=== PATIENT | female | born 1995 | race Caucasian/White ===

== ENCOUNTER 2016-12-13 09:38 | Emergency (ER) | payer SELFPAY ==
[2016-12-13 09:49] VITALS: BP 112/61; PULSE 101; TEMP 98.4; BMI 27.4
--- NOTE | 2016-12-13 10:04 | PDOC ---
History of Present Illness - General Chief Complaint: Pain, Acute Stated Complaint: VOMITING, ABD PAIN, CHILLS Time Seen by Provider: 12/13/16 10:02 History Source: Patient Exam Limitations: No Limitations - History of Present Illness Initial Comments: CHIEF COMPLAINT: 21 y/o afebrile female with no significant PMH c/o nasal congestion and belly ache since yesterday. HISTORY OF PRESENT ILLNESS: The patient states she is constantly swallowing her nasal congestion since yesterday. She states she has a mild cough and her stomach is upset. She denies fever, chills, sore throat, v/d, CP, SOB, productive cough, constipation. The patient did not take any over the counter medications for her symptoms. Vital signs on arrival are notable for pulse of 101. REVIEW OF SYSTEMS: GENERAL/CONSTITUTIONAL: No fever/chills. No weakness. No weight change. HEAD, EYES, EARS, NOSE AND THROAT: No change in vision. No ear pain or discharge. No sore throat. +nasal congestion CARDIOVASCULAR: No chest pain or shortness of breath. RESPIRATORY: +dry cough. No wheezing, or hemoptysis. GASTROINTESTINAL: +nasal and upset stomach. No vomiting, diarrhea, constipation. GENITOURINARY: No dysuria, frequency, or change in urination. MUSCULOSKELETAL: No joint or muscle swelling or pain. No neck or back pain. SKIN: No rash or easy bruising. NEUROLOGIC: No headache, vertigo, loss of consciousness, or loss of sensation. PHYSICAL EXAM: GENERAL: The patient is awake, alert, and fully oriented, in no acute distress. She is well appearing with nasal congestion. No cough throughout exam. HEAD: Normal with no signs of trauma. No TTP of sinuses. ENT: Pupils equal, round and reactive to light, extraocular movements intact, sclera anicteric, conjunctiva clear. Neck supple. LUNGS: Clear to auscultation bilaterally. Normal excursion. No respiratory distress or use of accessory muscles. CV: RRR, S1/S2, no MRG. Cap refill < 2 sec. ABDOMEN: Soft, non-distended, minimal TTP of epigastric region. Normal BS x 4 EXTREMITIES: Normal range of motion, no edema. NEUROLOGICAL: Normal speech, normal gait. CN II-XII grossly intact. PSYCH: Normal mood, normal affect. SKIN: Warm, dry, normal turgor, no rashes or lesions noted. Past History - Past Medical History Allergies/Adverse Reactions: Allergies Allergy/AdvReac Type Severity Reaction Status Date / Time No Known Allergies Allergy Verified 12/13/16 09:44 Home Medications: Ambulatory Orders NK [No Known Home Medication] 12/13/16 Other medical history: denies - Psycho/Social/Smoking Cessation Hx Anxiety: No Suicidal Ideation: No Smoking Status: No Smoking History: Never smoked Number of Cigarettes Smoked Daily: 0 Hx Alcohol Use: Yes (ocassionally) Drug/Substance Use Hx: Yes (marijuana) Substance Use Type: Marijuana *Physical Exam - Vital Signs Last Vital Signs Temp Pulse Resp BP Pulse Ox 98.4 F 101 H 14 112/61 97 12/13/16 09:45 12/13/16 09:45 12/13/16 09:45 12/13/16 09:45 12/13/16 09:45 Medical Decision Making - Medical Decision Making A/P: 21 y/o afebrile female with nasal common cold. Plan is as follows: 1. UA/hcg 2. PO pepcid 3. PO motrin hcg - negative The patient's vital signs have improved. She will be discharged to home with supportive care instructions for common cold. Instructed her to return to the ER with any worsening or concerning symptoms. The patient verbalizes understanding of all instructions, has no further questions and is awaiting discharge. *DC/Admit/Observation/Transfer Diagnosis at time of Disposition: Common cold, Nasal congestion - Discharge Dispostion Disposition: HOME Condition at time of disposition: Improved - Patient Instructions Printed Discharge Instructions: DI for Common Cold, DI for Nasal Congestion Additional Instructions: Discharge Instructions: -You can take an over the counter antihistamine such as zyrtec or claritin for your runny nose -You can take over the counter Sudafed for nasal congestion -Take over the counter Motrin for body aches if needed -Get plenty of rest and drink lots of fluids - Post Discharge Activity Work/School Note: Back to Work
[2016-12-13 10:40] LABS: URINE APPEARANCE CLEAR; URINE BILIRUBIN NEGATIVE (NEGATIVE); URINE BLOOD NEGATIVE (NEGATIVE); URINE COLOR YELLOW; URINE GLUCOSE (UA) NEGATIVE (NEGATIVE); URINE KETONE TRACE (NEGATIVE); URINE LEUK ESTERASE NEGATIVE (NEGATIVE); URINE NITRITE NEGATIVE (NEGATIVE); URINE PROTEIN NEGATIVE (NEGATIVE); URINE UROBILINOGEN NEGATIVE E.U./dl (0.2-1.0)
[2016-12-13] MEDS ORDERED: IBUPROFEN 600 MG TABLET (FP) PO ONE ×2 (10:55→11:01)
[2016-12-13] MEDS ORDERED: RANITIDINE HCL 150 MG TABLET (FP) PO ONE (10:55)
[2016-12-13] MEDS ORDERED: RANITIDINE HCL 150 MG TABLET (FP) ONE (11:01)
== END 2016-12-13 11:35 | disposition home or self-care (01) ==
LOC: JERFT 09:38
DX: J00 Acute nasopharyngitis [common cold] (principal)
CPT/HCPCS: 81003; 84703; 87086; 99282-25

== ENCOUNTER 2017-01-05 19:54 | Emergency (ER) | payer OTHER ==
[2017-01-05 20:06] VITALS: BP 113/67; PULSE 78; TEMP 99.5; BMI 27.4
--- NOTE | 2017-01-05 20:13 | PDOC ---
History of Present Illness <Jorge De La Paz - Last Filed: 01/05/17 20:11> - General History Source: Patient Exam Limitations: No Limitations - History of Present Illness Initial Comments: 01/05/17 20:28 The patient is a 21 year old female, with no significant past medical history, who presents to the emergency department with abdominal pain for the past month. She states that her pain is a cramping sensation that it intermittent in nature, without radiation or modifying factors. She notes that her menstrual cycle is at times normal and at times comes early. She also notes that at times she does having burning in her urethra after sexual intercourse. The patient denies any other symptoms. Allergies: None Past surgical history: None reported Social history: Marijuana and alcohol use. No drug use reported <Jonathan Rodriguez - Last Filed: 01/05/17 20:28> - General Chief Complaint: Pain Stated Complaint: ABD PAIN Time Seen by Provider: 01/05/17 20:05 Past History - Psycho/Social/Smoking Cessation Hx Anxiety: No Suicidal Ideation: No Smoking Status: No Smoking History: Never smoked Number of Cigarettes Smoked Daily: 0 Hx Alcohol Use: Yes (ocassionally) Drug/Substance Use Hx: Yes (marijuana) Substance Use Type: Marijuana <Jorge De La Paz - Last Filed: 01/05/17 20:11> <Jonathan Rodriguez - Last Filed: 01/05/17 20:28> - Past Medical History Allergies/Adverse Reactions: Allergies Allergy/AdvReac Type Severity Reaction Status Date / Time No Known Allergies Allergy Verified 12/13/16 09:44 Home Medications: Ambulatory Orders NK [No Known Home Medication] 12/13/16 Review of Systems - Review of Systems Able to Perform ROS?: Yes ABD/GI: Yes: Abdominal cramping All Other Systems: Reviewed and Negative <Jonathan Rodriguez - Last Filed: 01/05/17 20:28> *Physical Exam - Vital Signs Last Vital Signs Temp Pulse Resp BP Pulse Ox 99.5 F 78 16 113/67 100 01/05/17 20:02 01/05/17 20:02 01/05/17 20:02 01/05/17 20:02 01/05/17 20:02 - Physical Exam General Appearance: Yes: Nourished, Appropriately Dressed. No: Apparent Distress HEENT: positive: Normal ENT Inspection Respiratory/Chest: negative: Respiratory Distress Cardiovascular: positive: Regular Rhythm, Regular Rate Gastrointestinal/Abdominal: positive: Normal Bowel Sounds, Soft. negative: Tender Musculoskeletal: positive: Normal Inspection. negative: CVA Tenderness Integumentary: positive: Normal Color Neurologic: positive: Fully Oriented, Alert, Normal Mood/Affect, Normal Response , Motor Strength 5/5 <Jorge De La Paz - Last Filed: 01/05/17 20:11> - Vital Signs Last Vital Signs Temp Pulse Resp BP Pulse Ox 99.5 F 78 16 113/67 100 01/05/17 20:02 01/05/17 20:02 01/05/17 20:02 01/05/17 20:02 01/05/17 20:02 <Jonathan Rodriguez - Last Filed: 01/05/17 20:28> ED Treatment Course - ADDITIONAL ORDERS Additional order review: Laboratory Results 01/05/17 20:00 Urine Color Yellow Urine Appearance Clear Urine pH 6.5 Ur Specific [place] 1.025 Urine Protein Negative Urine Glucose (UA) Negative Urine Ketones Negative Urine Blood Negative Urine Nitrite Negative Urine Bilirubin Negative Urine Urobilinogen 0.2 e.u/dl Ur Leukocyte Esterase Negative <Jonathan Rodriguez - Last Filed: 01/05/17 20:28> *DC/Admit/Observation/Transfer <Jorge De La Paz - Last Filed: 01/05/17 20:11> - Attestations Scribe Attestion: 01/05/17 20:28 Documentation prepared by Jonathan Rodriguez, acting as medical record administrator for Jorge De La Paz MD <Jonathan Rodriguez - Last Filed: 01/05/17 20:28> Diagnosis at time of Disposition: Menstrual cramps - Discharge Dispostion Disposition: HOME Condition at time of disposition: Good - Patient Instructions Additional Instructions: SEE YOU LINOLEUM FLOOR LAYER PLANNED IBUPROFEN 600 MG 3 TIMES A DAY AT FIRST SIGN OF PAIN. CONTINUE FOR 2-3 DAYS RETURN IF SEVERE, CONSTANT PAIN, FEVER, VOMITING
[2017-01-05 20:21] LABS: PH,URINE 6.5 (4.5-8); URINE APPEARANCE Clear; URINE BILIRUBIN Negative (NEGATIVE); URINE BLOOD Negative (NEGATIVE); URINE GLUCOSE (UA) Negative (NEGATIVE); URINE KETONE Negative (NEGATIVE); URINE LEUK ESTERASE Negative (NEGATIVE); URINE NITRITE Negative (NEGATIVE); URINE PROTEIN Negative (NEGATIVE); URINE UROBILINOGEN 0.2 E.U/dl (0.2-1.0)
[2017-01-05 20:22] LABS: URINE COLOR YELLOW
== END 2017-01-05 20:46 | disposition home or self-care (01) ==
LOC: FER 19:54
DX: N94.6 Dysmenorrhea, unspecified (principal)
CPT/HCPCS: 81003; 99281-25

== ENCOUNTER 2017-01-19 09:25 | Emergency (ER) | payer OTHER ==
[2017-01-19 09:31] VITALS: BP 113/71; PULSE 90; TEMP 98.8; BMI 27.4
--- NOTE | 2017-01-19 09:36 | PDOC ---
History of Present Illness - General Chief Complaint: Chest Pain Stated Complaint: CHEST PAIN Time Seen by Provider: 01/19/17 09:28 History Source: Patient Exam Limitations: No Limitations - History of Present Illness Initial Comments: 01/19/17 09:29 This is a 21 yo F who presents to the ER with a complaint of chest pain Pt states her symptoms began yesterday while at work (she works as an automobile insurance claim examiner) Pt reports having left trapezial pain which she describes as "getting stuck", rated 7/10, radiation down the arm Pt also reports left chest pain which she states is sharp, pain is intermittent , rated 7/10, no exacerbating factors (exertion), no associated nausea or diaphoresis Pt denies trauma, or heavy lifting Pt denies fevers, chills cough Pt has previously been seen several times in the ER for similar symptoms, work up included labs, EKG, CXR, all of which was reportedly normal. Pt encouraged to follow up with pulmonary and cardiology which she has not done. Pt states her last presentation to the ER for similar symptoms was approximately 6 months ago. No pleurisy No Oral contraceptives No recent travel/long bus ride No immobilization, No recent surgery PMH: Seizure disorder ? PSH: denies meds: denies ALL: NKDA Social: denies alcohol, cigarette use, does use marijuana occasionally GENERAL/CONSTITUTIONAL: No: fever, chills, weakness, loss of appetite. HEAD, EYES, EARS, NOSE AND THROAT: No: change in vision, ear pain, discharge, sore throat, throat swelling. CARDIOVASCULAR: Yes chest pain No: lightheadedness, palpitations, syncope RESPIRATORY: No: cough, shortness of breath, wheezing, hemoptysis, stridor. GASTROINTESTINAL: No: nausea, vomiting, diarrhea, abdominal pain GENITOURINARY: No: dysuria, hematuria, frequency, urgency, flank pain. MUSCULOSKELETAL: No: back pain, neck pain, joint pain, muscle swelling or pain SKIN AND BREASTS: No: lesions, pallor, rash or easy bruising. NEUROLOGIC: No: headache, vertigo, paresthesias, weakness ENDOCRINE: No: unexplained weight gain or loss HEMATOLOGIC/LYMPHATIC: No: anemia, easy bleeding, swelling nodes. GENERAL: The patient is in no acute distress. HEAD: Normal with no signs of trauma. EYES: PERRLA, EOMI, sclera anicteric, conjunctiva clear. ENT: Ears normal, nares patent, oropharynx clear without exudates. Moist mucous membranes. NECK: Normal range of motion, supple without lymphadenopathy, JVD, or masses. LUNGS: Breath sounds equal, clear to auscultation bilaterally. No wheezes, and no crackles. HEART:Regular rate and rhythm, normal S1 and S2 without murmur, rub or gallop. ABDOMEN: Soft, nontender, normoactive bowel sounds. No guarding, no rebound. No masses palpable. EXTREMITIES: Normal range of motion, no edema. No clubbing or cyanosis. No erythema, or tenderness. NEUROLOGICAL: Cranial nerves II through XII grossly intact. Normal speech. No focal neurological deficits. MUSCULOSKELETAL: Back non-tender to palpation, no CVA tenderness SKIN: Warm, Dry, normal turgor, no rashes or lesions noted. 01/19/17 09:36 01/19/17 09:38 01/19/17 09:42 Past History - Past Medical History Allergies/Adverse Reactions: Allergies Allergy/AdvReac Type Severity Reaction Status Date / Time No Known Allergies Allergy Verified 01/19/17 09:28 Home Medications: Ambulatory Orders Ibuprofen [Advil -] 200 mg PO ASDIR 01/19/17 Naproxen Sodium [Midol] 220 mg PO ASDIR 01/19/17 - Psycho/Social/Smoking Cessation Hx Anxiety: No Suicidal Ideation: No Smoking Status: No Smoking History: Never smoked Number of Cigarettes Smoked Daily: 0 Hx Alcohol Use: Yes (ocassionally) Drug/Substance Use Hx: Yes (marijuana) Substance Use Type: Marijuana *Physical Exam - Vital Signs Last Vital Signs Temp Pulse Resp BP Pulse Ox 98.8 F 90 18 113/71 100 01/19/17 09:25 01/19/17 09:25 01/19/17 09:25 01/19/17 09:25 01/19/17 09:25 Heart Score/ECG Review #1 ECG reviewed & interpreted by me at: 10:27 01/19/17 10:27 Twelve-lead EKG was performed and reviewed by me. There is normal sinus rhythm with a normal rate of 63 bpm. The axis is normal. The intervals are normal - pr: 150ms, QRS:78ms, QTc:395ms. J point abnormalities (seen in prior EKG), T wave inversion III (same in prior EKG) ED Treatment Course - LABORATORY CBC & Chemistry Diagram: 01/19/17 07:00 01/19/17 Unknown - ADDITIONAL ORDERS Additional order review: Laboratory Results 01/19/17 01/19/17 01/19/17 Unknown Unknown 09:40 Sodium 134 L Potassium 4.3 Chloride 105 Carbon Dioxide 26 Anion Gap 3 L BUN 10 Creatinine 0.8 Random Glucose 92 Calcium 8.7 Creatine Kinase 93 Troponin I < 0.03 L Urine HCG, Qual Negative 01/19/17 07:00 RBC 4.30 MCV 81.1 MCHC 33.6 RDW 13.6 MPV 10.9 Neutrophils % 73.9 Lymphocytes % 17.1 Monocytes % 5.4 Eosinophils % 2.1 Basophils % 1.5 - RADIOLOGY Radiology Studies Ordered: Category Date Time Status CHEST PA & LAT [RAD] Stat Radiology 01/19/17 09:28 Completed Medical Decision Making - Medical Decision Making 01/19/17 09:41 THis is a 21 yo F presenting to the ER with chest pain Pt has had multiple presentations (According to the patient) Will do basic labs, EKG, CXR PT has no risk factors Wells neg, PERC negative Will discharge if results negative 01/19/17 10:32 Laboratory Tests 01/19/17 01/19/17 07:00 09:40 WBC 7.8 Hgb 11.7 Hct 34.9 Plt Count 208 Neutrophils % 73.9 Lymphocytes % 17.1 Urine HCG, Qual Negative 01/19/17 11:13 Laboratory Tests 01/19/17 01/19/17 Unknown Unknown Sodium 134 L Potassium 4.3 Chloride 105 Carbon Dioxide 26 BUN 10 Creatinine 0.8 Troponin I < 0.03 L 01/19/17 11:14 CXR: no acute pathology of lung willams Will discharge to home I discussed the physical exam findings, ancillary test results and final diagnoses with the patient. I answered all of the patient's questions. The patient was satisfied with the care received and felt comfortable with the discharge plan and treatment plan. The patient will call their primary care physician within 24 hours to arrange follow-up and will return to the Emergency Department with any new, persistent or worsening symptoms. *DC/Admit/Observation/Transfer Diagnosis at time of Disposition: Atypical chest pain - Discharge Dispostion Disposition: HOME Condition at time of disposition: Stable Admit: No - Referrals Referrals: Heidy Barroso MD [Staff Physician] - Rangel Barbosa MD [Staff Physician] - - Patient Instructions Printed Discharge Instructions: DI for Atypical Chest Pain, DI for Chest Pain Additional Instructions: Return to the emergency department immediately with ANY new, persistent or worsening symptoms. Continue any medications as previously prescribed by your physician. You should follow up with your primary doctor as soon as possible regarding today's emergency department visit. . Please make sure your doctor reviews the results of your emergency evaluation. Thank you for coming to the [facility] today for your care. It was a pleasure to see you today. Please note that your evaluation is INCOMPLETE until you follow-up with your doctor. - Post Discharge Activity Work/School Note: Back to Work
[2017-01-19 10:19] LABS: BASOPHIL 1.5 % (0-2.0); EOSINOPHIL 2.1 % (0-4.5); MCH 27.2 pg (25.7-33.7); MCHC 33.6 g/dl (32.0-36.0); MEAN CELL VOLUME 81.1 fl (80-96); MEAN PLT VOLUME 10.9 fl (7.5-11.1); NEUTROPHILS 73.9 % (42.8-82.8); PLATELET COUNT 208 K/MM3 (134-434); RDW 13.6 % (11.6-15.6); WHITE BLOOD COUNT 7.8 K/mm3 (4.0-10.0)
[2017-01-19 10:33] LABS: CALCIUM 8.7 mg/dl (8.4-10.2); CREATININE 0.8 mg/dl (0.6-1.3)
[2017-01-19 10:35] LABS: CPK(DFH) 93 IU/L (26-140)
[2017-01-19 11:10] LABS: TROPONIN I (DFP) < 0.03 ng/ml (0.03-0.50)
--- NOTE | 2017-01-19 12:18 | EKG ---
Test Reason : Blood Pressure : / mmHG Vent. Rate : 063 BPM Atrial Rate : 063 BPM P-R Int : 150 ms QRS Dur : 078 ms QT Int : 386 ms P-R-T Axes : 062 034 014 degrees QTc Int : 395 ms NORMAL SINUS RHYTHM WITH SINUS ARRHYTHMIA NONSPECIFIC ST ABNORMALITY WHEN COMPARED WITH ECG OF 09-MAR-2015 22:41, NO SIGNIFICANT CHANGE WAS FOUND Confirmed by MD SANCHEZ MARJORY ([id number]) on 01/19/2017 12:18:18 PM Referred By: YANELY DE LA CRUZ Confirmed By:CRISTI SANCHEZ MD
== END 2017-01-19 11:55 | disposition home or self-care (01) ==
LOC: FER 09:25
DX: R07.89 Other chest pain (principal)
CPT/HCPCS: 36415; 71020-TC; 80048; 82550; 84484; 84703; 85025; 93005; 99284-25

== ENCOUNTER 2018-04-10 18:33 | Emergency (ER) | payer OTHER ==
[2018-04-10 18:43] VITALS: BP 112/67; PULSE 77; TEMP 98.2; BMI 25.9
--- NOTE | 2018-04-10 20:00 | PDOC ---
History of Present Illness - General History Source: Patient Exam Limitations: No Limitations - History of Present Illness Initial Comments: 04/10/18 20:49 The patient is 23 a year old female, , currently , with a significant past medical history of seizures, ghonorrhea and pre-eclemsia, who presents to the emergency department complaining of abdominal pain for the past 4-5 days and recent vaginal discharge. She notes that she last got an ultrasound in February and everything was normal. She describes her vaginal discharge as a white mucous discharge. The patient denies chest pain, shortness of breath, headache or dizziness. Denies fever, chills, nausea, vomiting, diarrhea and constipation. Denies dysuria, frequency, urgency and hematuria. Allergies: None Past surgical history: None reported Social History: Marijuana use. No alcohol use. LIFE UNDERWRITER: Dr. Paramjit Pollack <Jonathan Rodriguez - Last Filed: 04/10/18 20:49> <Shaina Victoria - Last Filed: 04/10/18 22:45> - General Chief Complaint: Pain Stated Complaint: PAIN ( 9WKS ) Time Seen by Provider: 04/10/18 19:57 Past History <Jonathan Rodriguez - Last Filed: 04/10/18 20:49> - Past Medical History COPD: No Seizures: Yes Other medical history: PRE ECLAMPSIA - Suicide/Smoking/Psychosocial Hx Smoking Status: No Smoking History: Never smoked Have you smoked in the past 12 months: No Number of Cigarettes Smoked Daily: 0 Information on smoking cessation initiated: No Hx Alcohol Use: No Drug/Substance Use Hx: No Substance Use Type: Marijuana <Shaina Victoria - Last Filed: 04/10/18 22:45> - Past Medical History Allergies/Adverse Reactions: Allergies Allergy/AdvReac Type Severity Reaction Status Date / Time No Known Allergies Allergy Verified 04/10/18 18:40 Home Medications: Ambulatory Orders Ibuprofen [Advil -] 200 mg PO ASDIR 01/19/17 Naproxen Sodium [Midol] 220 mg PO ASDIR 01/19/17 Review of Systems - Review of Systems Able to Perform ROS?: Yes Comments:: 04/10/18 20:49 GENERAL/CONSTITUTIONAL: No fever or chills. No weakness. HEAD, EYES, EARS, NOSE AND THROAT: No change in vision. No ear pain or discharge. No sore throat. GASTROINTESTINAL: (+) Abdominal pain. No nausea, vomiting, diarrhea or constipation. GENITOURINARY: (+) Vaginal discharge. No dysuria, frequency, or change in urination. CARDIOVASCULAR: No chest pain or shortness of breath. RESPIRATORY: No cough, wheezing, or hemoptysis. MUSCULOSKELETAL: No joint or muscle swelling or pain. No neck or back pain. SKIN: No rash NEUROLOGIC: No headache, vertigo, loss of consciousness, or change in strength/ sensation. ENDOCRINE: No increased thirst. No abnormal weight change. HEMATOLOGIC/LYMPHATIC: No anemia, easy bleeding, or history of blood clots. ALLERGIC/IMMUNOLOGIC: No hives or skin allergy. <Jonathan Rodriguez - Last Filed: 04/10/18 20:49> *Physical Exam - Vital Signs Last Vital Signs Temp Pulse Resp BP Pulse Ox 98.2 F 77 18 112/67 100 04/10/18 18:40 04/10/18 18:40 04/10/18 18:40 04/10/18 18:40 04/10/18 18:40 - Physical Exam Comments: 04/10/18 20:50 Constitutional: Awake, alert, oriented. No acute distress. Head: Normocephalic. Atraumatic Eyes: PERRL. EOMI. Conjunctivae are not pale. ENT: Mucous membranes are moist and intact. Posterior pharynx without exudates or erythema. Uvula midline. Neck: Supple. Full ROM. No lymphadenopathy. Cardiovascular: Regular rate. Regular rhythm. S1, S2 regular. Distal pulses are 2+ and symmetric. Pulmonary/Chest: No evidence of respiratory distress. Clear to auscultation bilaterally No wheezing, rales or rhonchi. Abdominal: Soft and non-distended. There is no tenderness. No rebound, guarding or rigidity. No organomegaly. No palpable masses. Good bowel sounds. Back: No CVA tenderness. Musculoskeletal: No edema. No cyanosis. No clubbing. Full range of motion in all extremities. Nocalf tenderness. Radial/pedal pulses are intact and 2+ bilaterally Skin: Skin is warm and dry. No petechiae. No purpura. Neurological: Alert and oriented to person, place, and time. Cranial nerves II -XII are grossly intact. Normal speech. Strength is grossly symmetric. No sensory deficits. Psychiatric: Good eye contact. Normal interaction, affect and behavior Pelvic Exam: Ox is closed, no adnexal tenderness, no blood in vault. <Jonathan Rodriguez - Last Filed: 04/10/18 20:49> - Vital Signs Last Vital Signs Temp Pulse Resp BP Pulse Ox 98.2 F 77 18 112/67 100 04/10/18 18:40 04/10/18 18:40 04/10/18 18:40 04/10/18 18:40 04/10/18 18:40 <Shaina Victoria - Last Filed: 04/10/18 22:45> ED Treatment Course - LABORATORY CBC & Chemistry Diagram: 04/10/18 20:20 04/10/18 20:20 <Jonathan Rodriguez - Last Filed: 04/10/18 20:49> - LABORATORY CBC & Chemistry Diagram: 04/10/18 20:20 04/10/18 20:20 <Shaina Victoria - Last Filed: 04/10/18 22:45> Medical Decision Making - Medical Decision Making 04/10/18 20:27 23yo at about 9 weeks with lower abd cramping -no vag discharge -no dysuria -no vag bleeding -appt next sunday with PERINATAL BREASTFEEDING ASSISTANT - Dr. Pollack -will send labs, type and screen, ua, tvus -will monitor and reassess -cramping x 4 days 04/10/18 21:42 IUP at 9wks 4 days labs pending 04/10/18 22:43 O+ on blood bank stable for d/c to home answered all questions - discussed all reasults has appt with Jaki for next week <Shaina Victoria - Last Filed: 04/10/18 22:45> *DC/Admit/Observation/Transfer - Attestations Scribe Attestion: 04/10/18 20:50 Documentation prepared by Jonathan Rodriguez, acting as emergency medical service coordinator for Shaina Victoria DO <Jonathan Rodriguez - Last Filed: 04/10/18 20:49> - Discharge Dispostion Decision to Admit order: No - Attestations Physician Attestion: 04/10/18 22:45 I, Dr. Shaina Victoria, DO, attest that this document has been prepared under my direction and personally reviewed by me in its entirety. I further attest, that it accurately reflects all work, treatment, procedures and medical decision -making performed by me. <Shaina Victoria - Last Filed: 04/10/18 22:45> Diagnosis at time of Disposition: Abdominal pain during intrauterine - Discharge Dispostion Disposition: HOME Condition at time of disposition: Stable - Referrals Referrals: Paramjit Pollack MD [Primary Care Provider] - - Patient Instructions Printed Discharge Instructions: DI for Abdominal Pain -- Early Additional Instructions: Please keep your appointment for next week with Dr. Pollack. Please return to the ED with any further concerns or complaints. - Post Discharge Activity
[2018-04-10 20:53] LABS: BASO % 0.4 % (0-2.0); EOS % 0.7 % (0-4.5); HEMATOCRIT 37.8 % (32.4-45.2); HEMOGLOBIN 12.4 GM/dL (10.7-15.3); LYMPH % 20.3 % (8-40); MCH 27.3 pg (25.7-33.7); MCHC 32.7 g/dl (32.0-36.0); MEAN CELL VOLUME 83.4 fl (80-96); MEAN PLT VOLUME 10.6 fl (7.5-11.1); MONO % 5.4 % (3.8-10.2); NEUT % 73.2 % (42.8-82.8); PLATELET COUNT 239 K/MM3 (134-434); RBC 4.53 M/mm3 (3.60-5.2); RDW 12.9 % (11.6-15.6); WHITE BLOOD COUNT 10.5 K/mm3 (4.0-10.0)
[2018-04-10 20:55] LABS: URINE APPEARANCE CLEAR; URINE BILIRUBIN NEGATIVE (<2.0 mg/dL); URINE COLOR STRAW; URINE GLUCOSE (UA) NEGATIVE (NEGATIVE); URINE KETONE NEGATIVE (NEGATIVE); URINE LEUK ESTERASE NEGATIVE (NEGATIVE); URINE NITRITE NEGATIVE (NEGATIVE); URINE PROTEIN NEGATIVE (NEGATIVE); URINE UROBILINOGEN NEGATIVE mg/dL (0.2-1.0)
[2018-04-10 21:33] LABS: ALBUMIN 3.7 g/dl (3.4-5.0); ANION GAP 7 (8-16); BLOOD UREA NITROGEN 13 mg/dL (7-18); CALCIUM 8.9 mg/dL (8.5-10.1); CHLORIDE 102 mmol/L (98-107); CO2 27 mmol/L (21-32); CREATININE 0.6 mg/dL (0.55-1.02); GLUCOSE,RANDOM 75 mg/dL (74-106); SGOT/AST 14 U/L (15-37); SGPT/ALT 23 U/L (12-78); SODIUM 136 mmol/L (136-145)
[2018-04-10 21:50] LABS: ALK PHOS 46 U/L (45-117); BILIRUBIN,TOTAL 0.4 mg/dL (0.2-1.0); TOT PROT 7.9 g/dl (6.4-8.2)
== END 2018-04-10 22:51 | disposition home or self-care (01) ==
LOC: JER 18:33
DX: O26.891 Other specified pregnancy related conditions, first trimester (principal); R10.30 Lower abdominal pain, unspecified; Z3A.09 9 weeks gestation of pregnancy
CPT/HCPCS: 36415; 76801-TC; 80053; 81003; 84702; 85025; 86850; 86900; 86901; 99281-25

== ENCOUNTER 2018-06-16 08:36 | Emergency (ER) | payer OTHER ==
[2018-06-16 08:52] VITALS: BP 106/33; PULSE 97; TEMP 98.9; BMI 26.5
--- NOTE | 2018-06-16 09:35 | PDOC ---
History of Present Illness - General Chief Complaint: Cold Symptoms Stated Complaint: COLD SYMPTOMS ( 18weeks ) Time Seen by Provider: 06/16/18 09:22 History Source: Patient Exam Limitations: Clinical Condition - History of Present Illness Initial Comments: 06/16/18 09:36 Patient 18 weeks with no sig Past medical history present with complain of nasal congestion, runny nose and diarrhea for 2 days. Patient report diarrhea as improved this morning. Patient also reports she had chills sensation yesterday but was sleeping in the cold room. Denies in the symptoms Timing/Duration: 24 hours Past History - Past Medical History Allergies/Adverse Reactions: Allergies Allergy/AdvReac Type Severity Reaction Status Date / Time No Known Allergies Allergy Verified 06/16/18 08:52 Home Medications: Ambulatory Orders Ipratropium [place] 2 sprays NS TID PRN #1 bottle 06/16/18 COPD: No Seizures: Yes - Suicide/Smoking/Psychosocial Hx Smoking Status: No Smoking History: Never smoked Have you smoked in the past 12 months: No Number of Cigarettes Smoked Daily: 0 Information on smoking cessation initiated: No Hx Alcohol Use: No Drug/Substance Use Hx: No Substance Use Type: Marijuana Review of Systems - Review of Systems Able to Perform ROS?: Yes Is the patient limited [place] proficient: Yes Constitutional: Yes: Symptoms Reported, See HPI, Chills. No: Diaphoresis, Fever , Loss of Appetite, Malaise, Night Sweats, Weakness, Weight Stable, Unintentional Wgt. Loss, Unexplained wgt Loss, Other HEENTM: Yes: See HPI, Nose Congestion. No: Eye Pain, Blurred Vision, Tearing, Recent change in vision, Double Vision, Cataracts, Ear Pain, Ocular Prothesis, Ear Discharge, Nose Pain, Tinnitus, Nose Bleeding, Hearing Loss, Throat Pain, Throat Swelling, Mouth Pain, Dental Problems, Difficulty Swallowing, Mouth Swelling, Other Respiratory: No: Cough, Orthopnea, Shortness of Breath, SOB with Exertion, SOB at Rest, Stridor, Wheezing, Productive cough, Hemoptysis, Other Cardiac (ROS): No: Chest Pain, Edema, Irregular Heart Rate, Lightheadedness, Palpitations, Syncope, Chest Tightness, Other ABD/GI: Yes: See HPI, Diarrhea. No: Abdominal Distended, Abd. Pain w/ defecation, Blood Streaked Bowels, Constipated, Difficulty Swallowing, Nausea, Poor Appetite, Poor Fluid Intake, Rectal Bleeding, Vomiting, Indigestion, Abdominal cramping, Tarry Stools, Other All Other Systems: Reviewed and Negative *Physical Exam - Vital Signs Last Vital Signs Temp Pulse Resp BP Pulse Ox 98.9 F 97 H 16 106/33 100 06/16/18 08:50 06/16/18 08:50 06/16/18 08:50 06/16/18 08:50 06/16/18 08:50 - Physical Exam Comments: 06/16/18 09:38 GENERAL: Well developed, well nourished. Awake and alert. No acute distress. HEENT: Normocephalic, atraumatic. PERRLA, EOMI. No conjunctival pallor. Sclera are non- icteric. Moist mucous membranes. Oropharynx is clear. NECK: Supple. Full ROM. No JVD. Carotid pulses 2+ and symmetric, without bruits. No thyromegaly. No lymphadenopathy. CARDIOVASCULAR: Regular rate and rhythm. No murmurs, rubs, or gallops. Distal pulses are 2+ and symmetric. PULMONARY: No evidence of respiratory distress. Lungs clear to auscultation bilaterally. No wheezing, rales or rhonchi. ABDOMINAL: Soft. Non-tender. Non-distended. No rebound or guarding. No organomegaly. Normoactive bowel sounds. MUSCULOSKELETAL Normal range of motion at all joints. No bony deformities or tenderness. No CVA tenderness. EXTREMITIES: No cyanosis. No clubbing. No edema. No calf tenderness. SKIN: Warm and dry. Normal capillary refill. No rashes. No jaundice. NEUROLOGICAL: Alert, awake, appropriate. Cranial nerves 2-12 intact. No deficits to light touch and temperature in face, upper extremities and lower extremities. No motor deficits in the in face, upper extremities and lower extremities. Normoreflexic in the upper and lower extremities. Normal speech. Toes are down- going bilaterally. Gait is normal without ataxia. PSYCHIATRIC: Cooperative. Good eye contact. Appropriate mood and affect. General Appearance: Yes: Nourished, Appropriately Dressed. No: Apparent Distress Medical Decision Making - Medical Decision Making 06/16/18 09:38 Patient 18 weeks present with complain of nasal congestion, chills, runny nose and diarrhea for 2 days. Exams within normal limits. Symptoms likely viral syndrome. Patient stable for home discharge with outpatient treatment for URI symptoms with PCP follow-up *DC/Admit/Observation/Transfer Diagnosis at time of Disposition: Viral syndrome URI (upper respiratory infection) Qualifiers: URI type: unspecified viral URI Qualified Code(s): J06.9 - Acute upper respiratory infection, unspecified Diarrhea Qualifiers: Diarrhea type: unspecified type Qualified Code(s): R19.7 - Diarrhea, unspecified - Discharge Dispostion Disposition: HOME Condition at time of disposition: Stable Decision to Admit order: No - Prescriptions Prescriptions: Ipratropium [place] 2 sprays NS TID PRN #1 bottle PRN Reason: nasal congestion - Referrals Referrals: Alison Bautista MD [Primary Care Provider] - - Patient Instructions Printed Discharge Instructions: DI for Viral Upper Respiratory Infection -- Adult - Post Discharge Activity
== END 2018-06-16 09:40 | disposition home or self-care (01) ==
LOC: JERFT 08:36
DX: O99.89 Other specified diseases and conditions complicating pregnancy, childbirth and the puerperium (principal); J06.9 Acute upper respiratory infection, unspecified; O98.512 Other viral diseases complicating pregnancy, second trimester; Z3A.18 18 weeks gestation of pregnancy
CPT/HCPCS: 99281-25

== ENCOUNTER 2023-08-05 21:00 | Emergency (ER) | payer OTHER ==
[2023-08-05 21:08] VITALS: BP 109/66; BMI 25.7
[2023-08-05] MEDS ORDERED: SODIUM CHLORIDE 0.9% 500 ML INFUS.BAG IV ONE (22:10)
[2023-08-05] MEDS ORDERED: METOCLOPRAMIDE HCL INJECTION 10 MG/2 ML VIAL IVPB ONE (22:10)
[2023-08-05] MEDS ORDERED: ACETAMINOPHEN 1000 MG/100 ML BAG IVPB ONE (22:10)
[2023-08-05 23:01] LABS: EOS % 0.3 % (0-4.5); HEMATOCRIT 41.8 % (32.4-45.2); HEMOGLOBIN 14.2 GM/dL (10.7-15.3); MCH 27.9 pg (25.7-33.7); MCHC 33.9 g/dl (32.0-36.0); MEAN CELL VOLUME 82.2 fl (80-96); MEAN PLT VOLUME 9.2 fl (7.5-11.1); MONO % 23.2 % (3.8-10.2); NEUT % 49.5 % (42.8-82.8); PLATELET COUNT 97 10^3/uL (134-434); RBC 5.09 M/mm3 (3.60-5.2); RDW 13.5 % (11.6-15.6)
[2023-08-05 23:04] LABS: WHITE BLOOD COUNT 1.4 K/mm3 (4.0-10.0)
[2023-08-05 23:08] LABS: INR 1.25 (0.83-1.09); PROTHROMBIN TIME (PATIENT) 14.5 SEC (9.7-13.0)
[2023-08-05 23:11] LABS: ACTIVATED PTT 33.3 SECONDS (25.2-36.5)
[2023-08-05 23:12] LABS: POTASSIUM 3.7 mmol/L (3.5-5.1)
[2023-08-05 23:14] LABS: CALCIUM 8.2 mg/dL (8.5-10.1)
[2023-08-05 23:15] LABS: ALBUMIN 3.5 g/dl (3.4-5.0); BLOOD UREA NITROGEN 9.8 mg/dL (7-18); MAGNESIUM 1.6 mg/dL (1.8-2.4)
[2023-08-05 23:18] LABS: CREATININE 1.1 mg/dL (0.55-1.3)
[2023-08-05] MEDS ORDERED: IBUPROFEN 600 MG TABLET (FP) PO ONE ×2 (23:18→23:29)
[2023-08-05 23:19] LABS: BILIRUBIN,TOTAL 0.4 mg/dL (0.2-1); TOT PROT 7.9 g/dl (6.4-8.2)
[2023-08-05] MEDS ORDERED: POTASSIUM CHLORIDE ORAL LIQUID 20 MEQ/15 ML PO ONE (23:19)
[2023-08-05] MEDS ORDERED: MAGNESIUM SULF 50% (8.12 MEQ/2 ML-1 GM VIAL) IVPB ONE (23:19)
[2023-08-05] MEDS ORDERED: ACETAMINOPHEN INJECTION 100 ML IVPB ONE (23:29)
[2023-08-05] MEDS ORDERED: METOCLOPRAMIDE HCL INJECTION 10 MG/2 ML VIAL ONE (23:30)
[2023-08-05] MEDS ORDERED: MAGNESIUM SULFATE IN WATER 2 GM/50 ML IVPB IVPB ONE (23:46)
[2023-08-05] MEDS ORDERED: POTASSIUM CHLORIDE ORAL LIQUID 20 MEQ/15 ML ONE (23:46)
[2023-08-06 01:04] VITALS: PULSE 83; RESP 16; TEMP 99.1
[2023-08-06 02:24] LABS: HIV INTERPRETATION NEGATIVE (NEGATIVE)
== END 2023-08-06 01:07 | disposition home or self-care (01) ==
LOC: JERFT 21:00 → JER 21:00
PROC: 3E033NZ Introduction of Analgesics, Hypnotics, Sedatives into Peripheral Vein, Percutaneous Approach (ICD-10-PCS; principal; 2023-08-05)
PROC: 3E033GC Introduction of Other Therapeutic Substance into Peripheral Vein, Percutaneous Approach (ICD-10-PCS; 2023-08-05)
PROC: 3E033GC Introduction of Other Therapeutic Substance into Peripheral Vein, Percutaneous Approach (ICD-10-PCS; 2023-08-06)
DX: R50.9 Fever, unspecified (principal); R05.9 Cough, unspecified; R53.83 Other fatigue; J06.9 Acute upper respiratory infection, unspecified; B97.89 Other viral agents as the cause of diseases classified elsewhere; R63.0 Anorexia; R11.2 Nausea with vomiting, unspecified; R19.7 Diarrhea, unspecified; R53.1 Weakness; E86.0 Dehydration; R10.84 Generalized abdominal pain; R51.9 Headache, unspecified; R07.89 Other chest pain; Z20.822 Contact with and (suspected) exposure to COVID-19
CPT/HCPCS: 0241U-QW; 36415; 71046-TC-FY; 80053; 83605; 83735; 84484; 84703; 85025; 85610; 85730; 87040; 87389; 93005; 93010; 99285-25

== ENCOUNTER 2023-08-07 14:28 | Inpatient (IN) | payer OTHER ==
[2023-08-07 14:44] VITALS: BMI 25.7
[2023-08-07] MEDS ORDERED: ACETAMINOPHEN 1000 MG/100 ML BAG IVPB ONE (17:14)
[2023-08-07] MEDS ORDERED: SODIUM CHLORIDE 0.9% 500 ML INFUS.BAG IV ONE (17:14)
[2023-08-07] MEDS ORDERED: METOCLOPRAMIDE HCL INJECTION 10 MG/2 ML VIAL IVPUSH ONE (17:14)
[2023-08-07] MEDS ORDERED: ACETAMINOPHEN INJECTION 100 ML IVPB ONE (18:01)
[2023-08-07] MEDS ORDERED: METOCLOPRAMIDE HCL INJECTION 10 MG/2 ML VIAL ONE (18:02)
[2023-08-07 18:15] LABS: BASO % 0.8 % (0-2.0); HEMATOCRIT 39.9 % (32.4-45.2); HEMOGLOBIN 13.3 GM/dL (10.7-15.3); LYMPH % 28.6 % (8-40); MCH 27.3 pg (25.7-33.7); MCHC 33.4 g/dl (32.0-36.0); MEAN CELL VOLUME 81.7 fl (80-96); MEAN PLT VOLUME 10.1 fl (7.5-11.1); NEUT % 51.6 % (42.8-82.8); PLATELET COUNT 71 10^3/uL (134-434); RBC 4.88 M/mm3 (3.60-5.2); RDW 13.1 % (11.6-15.6); WHITE BLOOD COUNT 2.8 K/mm3 (4.0-10.0)
[2023-08-07 18:20] LABS: EPI CELLS 23 /uL (0-25.1); HYALINE CASTS 1 /uL (0-3.1); PH,URINE 6.5 (5.0-8.0); URINE APPEARANCE CLEAR; URINE BACTERIA 10 /uL (0-1359); URINE BILIRUBIN NEGATIVE (NEGATIVE); URINE COLOR ORANGE; URINE GLUCOSE (UA) NEGATIVE (NEGATIVE); URINE KETONE 1+ (NEGATIVE); URINE LEUK ESTERASE NEGATIVE (NEGATIVE); URINE NITRITE NEGATIVE (NEGATIVE); URINE PROTEIN 1+ (NEGATIVE); URINE RBC 7235 /uL (0-23.9); URINE WBC 14 /uL (0-25.8)
[2023-08-07 18:39] LABS: INR 1.05 (0.83-1.09); PROTHROMBIN TIME (PATIENT) 12.2 SEC (9.7-13.0)
[2023-08-07 18:42] LABS: ACTIVATED PTT 31.7 SECONDS (25.2-36.5)
[2023-08-07 18:58] LABS: CALCIUM 8.7 mg/dL (8.5-10.1)
[2023-08-07 18:59] LABS: ALBUMIN 3.4 g/dl (3.4-5.0); BLOOD UREA NITROGEN 9.9 mg/dL (7-18); MAGNESIUM 1.9 mg/dL (1.8-2.4)
[2023-08-07 19:02] LABS: CREATININE 0.8 mg/dL (0.55-1.3)
[2023-08-07 19:04] LABS: BILIRUBIN,TOTAL 0.3 mg/dL (0.2-1); TOT PROT 7.2 g/dl (6.4-8.2)
[2023-08-07] MEDS ORDERED: DEXTROSE 5%-NORMAL SALINE 1,000 ML IV SCH (21:15)
[2023-08-07] MEDS ORDERED: ONDANSETRON 4 MG/2 ML VIAL IVPUSH PRN (21:21)
[2023-08-07] MEDS ORDERED: DOCUSATE SODIUM 100 MG CAPSULE (FP) PO PRN (21:21)
[2023-08-07] MEDS ORDERED: ACETAMINOPHEN 325 MG TABLET (FP) PO PRN (21:21)
[2023-08-07] MEDS ORDERED: MECLIZINE HCL 12.5 MG TABLET ONE (22:09)
[2023-08-07] MEDS ORDERED: DOCUSATE SODIUM 100 MG CAPSULE (FP) PO ONE (22:10)
[2023-08-07] MEDS: DEXTROSE 5%-NORMAL SALINE 1,000 ML IV SCH (22:46)
[2023-08-07] MEDS ORDERED: MECLIZINE HCL 12.5 MG TABLET PO ONE (23:01)
[2023-08-08] MEDS ORDERED: ACETAMINOPHEN 1000 MG/100 ML BAG IVPB PRN
[2023-08-08] MEDS ORDERED: MECLIZINE HCL 12.5 MG TABLET PO PRN (04:14)
[2023-08-08 07:42] LABS: HEMATOCRIT 34.5 % (32.4-45.2); HEMOGLOBIN 11.3 GM/dL (10.7-15.3); MCH 27.3 pg (25.7-33.7); MCHC 32.8 g/dl (32.0-36.0); MEAN PLT VOLUME 10.2 fl (7.5-11.1); PLATELET COUNT 59 10^3/uL (134-434); RBC 4.15 M/mm3 (3.60-5.2); RDW 12.9 % (11.6-15.6); WHITE BLOOD COUNT 2.1 K/mm3 (4.0-10.0)
[2023-08-08 07:52] LABS: POTASSIUM 3.4 mmol/L (3.5-5.1)
[2023-08-08 07:54] LABS: CALCIUM 7.5 mg/dL (8.5-10.1)
[2023-08-08 07:55] LABS: MAGNESIUM 1.7 mg/dL (1.8-2.4)
[2023-08-08 07:58] LABS: CREATININE 0.7 mg/dL (0.55-1.3); PHOSPHOROUS 3.5 mg/dL (2.5-4.9)
[2023-08-08 07:59] LABS: TOT PROT 5.9 g/dl (6.4-8.2)
[2023-08-08 08:00] LABS: BILIRUBIN,TOTAL 0.3 mg/dL (0.2-1)
[2023-08-08] MEDS ORDERED: diphenhydrAMINE HCL 25 MG CAPSULE (FP) PO PRN (08:00)
[2023-08-08 08:17] LABS: ALBUMIN 2.7 g/dl (3.4-5.0)
[2023-08-08 09:53] LABS: ANISOCYTOSIS 1+; MACROCYTOSIS 0
[2023-08-08] MEDS ORDERED: MAGNESIUM SULFATE IN WATER 2 GM/50 ML IVPB IVPB ONE ×2 (10:04→10:30)
[2023-08-08] MEDS ORDERED: KCL 10 MEQ IVPB 10 MEQ/100 ML INFUS.BAG IVPB ONE ×2 (10:05→12:23)
[2023-08-08] MEDS: KCL 10 MEQ IVPB 10 MEQ/100 ML INFUS.BAG IVPB SCH ×2 (10:50→11:46)
[2023-08-08] MEDS: DEXTROSE 5%-NORMAL SALINE 1,000 ML IV SCH (15:02)
[2023-08-09] MEDS: DEXTROSE 5%-NORMAL SALINE 1,000 ML IV SCH ×2 (01:35→11:53)
[2023-08-09 10:48] LABS: HEMATOCRIT 35.2 % (32.4-45.2); HEMOGLOBIN 11.4 GM/dL (10.7-15.3); MCHC 32.5 g/dl (32.0-36.0); MEAN PLT VOLUME 9.9 fl (7.5-11.1); PLATELET COUNT 84 10^3/uL (134-434); RBC 4.24 M/mm3 (3.60-5.2); RDW 13.3 % (11.6-15.6); WHITE BLOOD COUNT 2.6 K/mm3 (4.0-10.0)
[2023-08-09 10:59] LABS: POTASSIUM 3.5 mmol/L (3.5-5.1)
[2023-08-09 11:06] LABS: BLOOD UREA NITROGEN 4.4 mg/dL (7-18)
[2023-08-09 11:07] LABS: ALBUMIN 3.1 g/dl (3.4-5.0)
[2023-08-09 11:09] LABS: BILIRUBIN,TOTAL 0.3 mg/dL (0.2-1); CREATININE 0.8 mg/dL (0.55-1.3); TOT PROT 6.6 g/dl (6.4-8.2)
[2023-08-09 11:23] LABS: ANISOCYTOSIS 0; HELMET CELLS 0; HOWELL-JOLLY BODIES 0; MACROCYTOSIS 0; OVALOCYTE 0; ROULEAU 0; SICKELED CELLS 0; TARGET CELLS 0; TEAR DROP CELLS 0; TOXIC GRANULATION 0
[2023-08-10 01:07] LABS: FIBROSIS SCORE. 0.04 (0.00-0.21); HCV ALPHA 2 MACRO CHART 129 mg/dL (110-276); NECROINFLAM. ACTIVITY GRADE A0-A1 (.)
[2023-08-10 05:27] VITALS: RESP 18; TEMP 97.9
[2023-08-10 08:22] VITALS: BP 98/56; PULSE 74
[2023-08-10 10:27] LABS: HEMATOCRIT 37.3 % (32.4-45.2); HEMOGLOBIN 12.1 GM/dL (10.7-15.3); MCH 27.1 pg (25.7-33.7); MCHC 32.4 g/dl (32.0-36.0); MEAN CELL VOLUME 83.6 fl (80-96); MEAN PLT VOLUME 10.7 fl (7.5-11.1); PLATELET COUNT 110 10^3/uL (134-434); RBC 4.46 M/mm3 (3.60-5.2); RDW 13.2 % (11.6-15.6); WHITE BLOOD COUNT 3.3 K/mm3 (4.0-10.0)
[2023-08-10 10:44] LABS: CALCIUM 8.3 mg/dL (8.5-10.1)
[2023-08-10 10:45] LABS: ALBUMIN 3.2 g/dl (3.4-5.0); BLOOD UREA NITROGEN 5.7 mg/dL (7-18)
[2023-08-10 10:46] LABS: CREATININE 0.8 mg/dL (0.55-1.3)
[2023-08-10 10:48] LABS: BILIRUBIN,TOTAL 0.3 mg/dL (0.2-1)
[2023-08-10 10:51] LABS: TOT PROT 6.9 g/dl (6.4-8.2)
[2023-08-10 11:20] LABS: ANISOCYTOSIS 1+; MACROCYTOSIS 0
[2023-08-10] MEDS: DEXTROSE 5%-NORMAL SALINE 1,000 ML IV SCH (13:11)
[2023-08-10 18:07] LABS: WEST NILE VIRUS AB SERUM,IGM Negative (Negative)
== END 2023-08-10 13:15 | disposition home or self-care (01) | DRG 723 ==
LOC: JER 14:28 → JERBED 21:12 → J6S 08-08 14:16 → OBSVTOIN 08-09 10:58
PROVIDERS: ADMIT Internal Medicine; ATTEND Internal Medicine
DX: B27.90 Infectious mononucleosis, unspecified without complication (principal); D70.9 Neutropenia, unspecified; B34.9 Viral infection, unspecified; R19.7 Diarrhea, unspecified; R21 Rash and other nonspecific skin eruption; D69.6 Thrombocytopenia, unspecified; R79.89 Other specified abnormal findings of blood chemistry; R09.81 Nasal congestion; Z88.0 Allergy status to penicillin
CPT/HCPCS: 36415; 71045-TC-FY; 76700-TC; 76856-TC; 80053; 81003; 82172; 82550; 82553; 82977; 83010; 83735; 83883; 84100; 84460; 84484; 84703; 85025; 85610; 85730; 86308; 86665; 86708; 86780; 86788; 86789; 86790; 86850; 86900; 86901; 87040; 87045; 87046; 87086; 87207; 87536; 87635; 99285-25; G0378